=== PATIENT | female | born 1990 | race Caucasian/White ===

== ENCOUNTER 2018-11-15 04:10 | Inpatient (IN) | payer SELFPAY ==
[2018-11-15] VITALS (10 sets, daily range): BP systolic 100–151; BP diastolic 56–86; PULSE 75–96; RESP 16; TEMP 36–36.8; O2SAT 97–100; BMI 34.6
[2018-11-15] MEDS: Lactated Ringers 500 ML 999 ML IV (04:50)
[2018-11-15] MEDS: Lactated Ringers 1,000 ML 200 ML IV (05:20)
[2018-11-15 05:39] LABS: Absolute Lymphocyte Count 1.22 X10^3/uL (0.83-4.51); Absolute Neutrophil Count 18.9 X10^3/uL (2.0-7.7); Basophil# 0.05 X10^3/uL; Basophil% 0.2 % (0-1); Eosinophil# 0.06 X10^3/uL; Eosinophils% 0.3 % (0-5); Hematocrit 35.3 % (37-47); Lymphocyte # 1.22 X10^3/ul (4.0); Lymphocyte % 5.6 % (19-41); Mean Corpuscular Hgb 31.5 pg (27.0-32.0); Mean Corpuscular Volume 92.7 fL (81-99); Mean Platelet Vol. 11.5 fl (6.2-12.0); Monocyte# 1.53 X10^3/uL; NRBC Flagged by Analyzer 0 % (0-5); Neutrophil # 18.88 X10^3/uL (2.7-7.7); Neutrophil % 86.3 % (47-70); POSITIVE DIFFERENTIAL YES; Platelet Count 161 K/mm3 (150-450); RBC Distribution Width CV 12.6 % (11.6-14.6); RBC Distribution Width SD 42.5 fl (35.1-43.9); Red Blood Count 3.81 M/mm3 (4.2-5.4); White Blood Count 21.9 K/mm3 (4.4-11.0)
[2018-11-15 05:41] LABS: Differential Indicated SCAN CRITERIA MET
[2018-11-15] MEDS: HYDROmorphone 1 MG/ML Syringe IV (05:42)
[2018-11-15 05:51] LABS: International Normalized Ratio 1.1; Prothrombin Time (Protime)PT. 14.3 SECONDS (11.7-14.9)
[2018-11-15 05:52] LABS: Partial Thromboplast Time 32.4 Seconds (24.1-36.2)
[2018-11-15 06:13] LABS: Color, Urine Yellow (Yellow); Glucose, Dipstick 100 mg/dl (Normal); Ketone-Dipstick Negative (Negative); Leukocyte Esterase-Dipstick 25 /ul (Negative); Nitrite-Dipstick Negative (Negative); Occult Blood-Urine 150 /ul (Negative); Protein-Dipstick 500 mg/dl (Negative); Urine Bilirubin Dipstick Negative (Negative); Urine Clarity Cloudy (Clear); Urine Urobilinogen Normal (Normal)
[2018-11-15 06:14] LABS: Squamous Epithelial Cells - UA 10-25 SEEN /hpf (5-10)
[2018-11-15 06:15] LABS: Bacteria 2+ /hpf (None Seen); Red Blood Cells-Urine 10-25 SEEN /hpf (0-5); White Blood Cells 0-5 SEEN /hpf (0-5)
[2018-11-15 06:16] LABS: Amorphous Sediment 1+; Coarse Granular Cast 0-5 SEEN /lpf (0-5 /lpf); Hyaline Cast 0-5 SEEN /lpf (0-5); Mucous, Urine 1+ /hpf (<or=2+)
[2018-11-15 06:16] LABS: Differential Comment SCANNED; Toxic Granulation 2+
[2018-11-15] MEDS: Magnesium Sulfate 4gm/100mL 4 GM/100 ML IV.SOLN. IV (06:25)
[2018-11-15 06:27] LABS: Amphetamine Urine VISTA NEGATIVE (<1000 ng/mL); Barbiturate Urine VISTA NEGATIVE (< 200 ng/mL); Benzodiazepine Urine VISTA NEGATIVE (< 200 ng/mL); Cocaine Urine VISTA NEGATIVE (< 300 ng/mL); Ecstacy Urine VISTA NEGATIVE (< 500 ng/mL); Methadone Urine VISTA NEGATIVE (< 300 ng/mL); PCP Urine VISTA NEGATIVE (< 25 ng/mL); THC Urine VISTA NEGATIVE (< 50 ng/mL); Vista UDS pH Range 8
[2018-11-15 06:36] LABS: AST(SGOT) 33 U/L (15-37)
[2018-11-15 06:40] LABS: Alanine Aminotransfer ALT/SGPT 21 U/L (13-56); Creatinine, Serum 0.98 mg/dL (0.55-1.02); EST Glomerular Filtration Rate 71 mL/min (>60); Est Glom Filt Rate - Afr Amer 86 mL/min (>60); Thyroid Stim Hormone (TSH) 4.02 uIU/mL (0.358-3.74); Uric Acid 4.6 mg/dL (2.6-6.0)
[2018-11-15 06:41] LABS: Group B Strep DNA By PCR POSITIVE (Negative); Probe Check PASS
[2018-11-15] MEDS: fentaNYL-bupivacaine (epidural) 100 ML BAG EPIDURAL (06:45)
--- NOTE | 2018-11-15 06:52 | HP.PCM_ITS ---
- Problem List (1) demise affecting labor Status: Acute Comment: No heart tones captured by display coordinator at the birthing center prior to arrival to labor and delivery (2) Oligohydramnios Status: Acute Comment: Upon admission patient was not ruptured and grossly diminished amniotic fluid volume noted. (3) Post-dates Status: Acute (4) Family history of SIDS (sudden syndrome) Status: Acute (5) Limited care in third trimester Status: Acute Comment: Started care at 20 weeks and received care by display coordinator Evelin Cruz (6) Consanguinity Status: Acute History Date of Admission: 11/15/18 Final ERIKA: 10/28/18 Gestational age: 42 Weeks and 4 Days History of this : This is a 28 year-old, at 42 weeks gestational age presents in active labor with suspected demise of fetus. No heart tones were captured by her display coordinator at the birthing center prior to arrival to labor and delivery and upon evaluation initially on ultrasound there was no color Doppler flow and no heart motion seen. Grossly minimal amniotic fluid although limited visualization due to the lack of fluid. Patient's membranes were intact upon presentation. She complained of regular contractions with minimal break in between and increased uterine tone in between. No vaginal bleeding. Patient felt movement yesterday. Per the supervisor rod placing she started care at approximately 20 weeks and was measuring low for expected gestational age which was unclear to the supervisor rod placing if it was due to growth abnormalities or incorrect dating. They suspected incorrect dating. Allergies No Known Allergies Allergy (Verified 11/15/18 04:42) Home Medications: Home Medications Calcium Carbonate [Calcium] 600 mg PO 11/15/18 Ferrous Sulfate [Iron] 325 mg PO 11/15/18 Folic Acid 0.8 mg PO 11/15/18 Vit No.130/Iron/Folic [ Tablet] 11/15/18 Smoking Status: Never smoker Alcohol: None Number of Fetus(es): 1 - vertex NST - FHR Rate Baby A Baseline: 0 no heart tones present on initial evaluation, no color Doppler flow History Past Pregnancies: Past Pregnancies previuos term spontaneous labor at 4 days SIDS Labs: Mom's Problem List Problem Status Onset Code demise affecting labor Acute Oligohydramnios Acute O41.00X0 Post-dates Acute O48.0 Family history of SIDS (sudden infant syndrome) Acute Z84.82 Limited care in third trimester Acute O09.33 Consanguinity Acute Z84.3 Mom's Labs & Results 11/15/18 11/15/18 11/15/18 04:40 04:40 04:40 WBC RBC Hgb Hct MCV MCH MCHC RDW Std Deviation RDW Coeff of Iris Plt Count MPV Immature Gran % (Auto) Neut % (Auto) Lymph % (Auto) [place] % (Auto) Eos % (Auto) Baso % (Auto) Absolute Neuts (auto) Absolute Lymphs (auto) Nucleated RBC % Differential Comment Diff Path Review Toxic Granulation Kleihauer-Betke F Hgb Pending PT INR APTT Creatinine 0.98 Estim Creat Clear Calc 76.90 Est GFR (MDRD) Af Amer 86 Est GFR (MDRD) Non-Af 71 Hemoglobin A1c 5.9 Uric Acid 4.6 AST ALT 21 TSH 4.02 H Urine Color Urine Clarity Urine pH Ur Specific [place] Urine Protein Urine Glucose (UA) Urine Ketones Urine Occult Blood Urine Nitrite Urine Bilirubin Urine Urobilinogen Ur Leukocyte Esterase Urine RBC Urine WBC Ur Squamous Epith Cells Amorphous Sediment Urine Bacteria Hyaline Casts Coarse Granular Casts Urine Mucus U Random Total Protein Urine Creatinine Protein/Creatinin Ratio Urine Opiates Screen Urine Methadone Screen Ur Barbiturates Screen Ur Phencyclidine Scrn Ur Amphetamines Screen U Methamphetamin-MDMA U Benzodiazepines Scrn Urine Cocaine Screen U Cannabinoids Screen Ur Drug Screen Comment Anti-Cardiolipin IgG Ab Pending Anti-Cardiolipin IgA Ab Pending Anti-Cardiolipin IgM Ab Pending RPR Chlam trachomat DNA PCR Hep Bs Antigen Hepatitis C Antibody HIV 1&2 Antibody N.gonorrhoeae DNA (PCR) Rubella IgG Antibody Group B Strep DNA Specimen Comment Blood Type Antibody Screen 11/15/18 11/15/18 11/15/18 04:40 04:40 04:40 WBC 21.9 H RBC 3.81 L Hgb 12.0 Hct 35.3 L MCV 92.7 MCH 31.5 MCHC 34.0 RDW Std Deviation 42.5 RDW Coeff of Iris 12.6 Plt Count 161 MPV 11.5 Immature Gran % (Auto) 0.600 Neut % (Auto) 86.3 H Lymph % (Auto) 5.6 L [place] % (Auto) 7.0 Eos % (Auto) 0.3 Baso % (Auto) 0.2 Absolute Neuts (auto) 18.9 H Absolute Lymphs (auto) 1.22 Nucleated RBC % 0 Differential Comment SCANNED Diff Path Review May foll Toxic Granulation 2+ Kleihauer-Betke F Hgb PT INR APTT Creatinine Estim Creat Clear Calc Est GFR (MDRD) Af Amer Est GFR (MDRD) Non-Af Hemoglobin A1c Uric Acid AST ALT TSH Urine Color Urine Clarity Urine pH Ur Specific [place] Urine Protein Urine Glucose (UA) Urine Ketones Urine Occult Blood Urine Nitrite Urine Bilirubin Urine Urobilinogen Ur Leukocyte Esterase Urine RBC Urine WBC Ur Squamous Epith Cells Amorphous Sediment Urine Bacteria Hyaline Casts Coarse Granular Casts Urine Mucus U Random Total Protein Urine Creatinine Protein/Creatinin Ratio Urine Opiates Screen Urine Methadone Screen Ur Barbiturates Screen Ur Phencyclidine Scrn Ur Amphetamines Screen U Methamphetamin-MDMA U Benzodiazepines Scrn Urine Cocaine Screen U Cannabinoids Screen Ur Drug Screen Comment Anti-Cardiolipin IgG Ab Anti-Cardiolipin IgA Ab Anti-Cardiolipin IgM Ab RPR Pending Chlam trachomat DNA PCR Hep Bs Antigen Hepatitis C Antibody HIV 1&2 Antibody N.gonorrhoeae DNA (PCR) Rubella IgG Antibody Pending Group B Strep DNA Specimen Comment Blood Type Antibody Screen 11/15/18 11/15/18 11/15/18 04:40 04:40 04:40 WBC RBC Hgb Hct MCV MCH MCHC RDW Std Deviation RDW Coeff of Iris Plt Count MPV Immature Gran % (Auto) Neut % (Auto) Lymph % (Auto) [place] % (Auto) Eos % (Auto) Baso % (Auto) Absolute Neuts (auto) Absolute Lymphs (auto) Nucleated RBC % Differential Comment Diff Path Review Toxic Granulation Kleihauer-Betke F Hgb PT 14.3 INR 1.1 APTT 32.4 Creatinine Estim Creat Clear Calc Est GFR (MDRD) Af Amer Est GFR (MDRD) Non-Af Hemoglobin A1c Uric Acid AST 33 ALT TSH Urine Color Urine Clarity Urine pH Ur Specific [place] Urine Protein Urine Glucose (UA) Urine Ketones Urine Occult Blood Urine Nitrite Urine Bilirubin Urine Urobilinogen Ur Leukocyte Esterase Urine RBC Urine WBC Ur Squamous Epith Cells Amorphous Sediment Urine Bacteria Hyaline Casts Coarse Granular Casts Urine Mucus U Random Total Protein Urine Creatinine Protein/Creatinin Ratio Urine Opiates Screen Urine Methadone Screen Ur Barbiturates Screen Ur Phencyclidine Scrn Ur Amphetamines Screen U Methamphetamin-MDMA U Benzodiazepines Scrn Urine Cocaine Screen U Cannabinoids Screen Ur Drug Screen Comment Anti-Cardiolipin IgG Ab Anti-Cardiolipin IgA Ab Anti-Cardiolipin IgM Ab RPR Chlam trachomat DNA PCR Hep Bs Antigen Hepatitis C Antibody HIV 1&2 Antibody N.gonorrhoeae DNA (PCR) Rubella IgG Antibody Group B Strep DNA Specimen Comment Blood Type A POSITIVE Antibody Screen NEGATIVE 11/15/18 11/15/18 11/15/18 04:40 05:05 05:10 WBC RBC Hgb Hct MCV MCH MCHC RDW Std Deviation RDW Coeff of Iris Plt Count MPV Immature Gran % (Auto) Neut % (Auto) Lymph % (Auto) [place] % (Auto) Eos % (Auto) Baso % (Auto) Absolute Neuts (auto) Absolute Lymphs (auto) Nucleated RBC % Differential Comment Diff Path Review Toxic Granulation Kleihauer-Betke F Hgb PT INR APTT Creatinine Estim Creat Clear Calc Est GFR (MDRD) Af Amer Est GFR (MDRD) Non-Af Hemoglobin A1c Uric Acid AST ALT TSH Urine Color Urine Clarity Urine pH Ur Specific [place] Urine Protein Urine Glucose (UA) Urine Ketones Urine Occult Blood Urine Nitrite Urine Bilirubin Urine Urobilinogen Ur Leukocyte Esterase Urine RBC Urine WBC Ur Squamous Epith Cells Amorphous Sediment Urine Bacteria Hyaline Casts Coarse Granular Casts Urine Mucus U Random Total Protein Urine Creatinine Protein/Creatinin Ratio Urine Opiates Screen NEGATIVE Urine Methadone Screen NEGATIVE Ur Barbiturates Screen NEGATIVE Ur Phencyclidine Scrn NEGATIVE Ur Amphetamines Screen NEGATIVE U Methamphetamin-MDMA NEGATIVE U Benzodiazepines Scrn NEGATIVE Urine Cocaine Screen NEGATIVE U Cannabinoids Screen NEGATIVE Ur Drug Screen Comment Anti-Cardiolipin IgG Ab Anti-Cardiolipin IgA Ab Anti-Cardiolipin IgM Ab RPR Chlam trachomat DNA PCR Hep Bs Antigen Pending Hepatitis C Antibody Pending HIV 1&2 Antibody Pending N.gonorrhoeae DNA (PCR) Rubella IgG Antibody Group B Strep DNA POSITIVE H Specimen Comment Not Reportable Blood Type Antibody Screen 11/15/18 11/15/18 11/15/18 05:10 05:10 05:10 WBC RBC Hgb Hct MCV MCH MCHC RDW Std Deviation RDW Coeff of Iris Plt Count MPV Immature Gran % (Auto) Neut % (Auto) Lymph % (Auto) [place] % (Auto) Eos % (Auto) Baso % (Auto) Absolute Neuts (auto) Absolute Lymphs (auto) Nucleated RBC % Differential Comment Diff Path Review Toxic Granulation Kleihauer-Betke F Hgb PT INR APTT Creatinine Estim Creat Clear Calc Est GFR (MDRD) Af Amer Est GFR (MDRD) Non-Af Hemoglobin A1c Uric Acid AST ALT TSH Urine Color Yellow Urine Clarity Cloudy Urine pH 8.0 Ur Specific [place] 1.010 Urine Protein 500 H Urine Glucose (UA) 100 H Urine Ketones Negative Urine Occult Blood 150 H Urine Nitrite Negative Urine Bilirubin Negative Urine Urobilinogen Normal Ur Leukocyte Esterase 25 H Urine RBC 10-25 SEEN Urine WBC 0-5 SEEN Ur Squamous Epith Cells 10-25 SEEN Amorphous Sediment 1+ Urine Bacteria 2+ Hyaline Casts 0-5 SEEN Coarse Granular Casts 0-5 SEEN Urine Mucus 1+ U Random Total Protein 2576.0 H Urine Creatinine 54.50 Protein/Creatinin Ratio 45699 H Urine Opiates Screen Urine Methadone Screen Ur Barbiturates Screen Ur Phencyclidine Scrn Ur Amphetamines Screen U Methamphetamin-MDMA U Benzodiazepines Scrn Urine Cocaine Screen U Cannabinoids Screen Ur Drug Screen Comment Anti-Cardiolipin IgG Ab Anti-Cardiolipin IgA Ab Anti-Cardiolipin IgM Ab RPR Chlam trachomat DNA PCR Negative Hep Bs Antigen Hepatitis C Antibody HIV 1&2 Antibody N.gonorrhoeae DNA (PCR) Negative Rubella IgG Antibody Group B Strep DNA Specimen Comment Blood Type Antibody Screen Course Did the patient receive Yes care? Labs Blood Type: A RH: POSITIVE Other Lab Procedures/Results/ all labs collected on admission Comments: Current Obstetrical History Gestational Diabetes No Incompetent Cervix No Infertility No IUGR No Macrosomia No Hypertension/Pre-eclampsia Yes: during recent visits Placenta Previa/Abruption No PTL/PROM No Uterine anomaly No Oligohydramnios No Polyhydramnios No Multiple gestation No Past Medical History Asthma No Diabetes No Hypertension No Heart disease No Mitral valve prolapse No Neurologic/Seizure disorder/ No Migraines Kidney disease No Liver disease No Varicosities Yes Clotting disorders/Hx of DVT No Thyroid Dysfunction No Other medical diseases No Psychiatric disorders No Major trauma Yes: Abnormal PAP smear No Sleep apnea No Mammogram in the last 2 years No Social History Marital Status: Alleged father marlene Hx Smoking No Smoking Status Never smoker Expected Infant Delivery Method: Spontaneous Vaginal Review of Systems Constitutional: Denies: Fever, Malaise Eyes: Denies: Blurred vision, Vision Change HEENT: Denies: Head Aches, Visual Changes Cardiovascular: Denies: Chest Pain, Palpitations Respiratory: Denies: Cough, Shortness of Breath, Wheezing Gastrointestinal: Reports: Abdominal Pain, Nausea. Denies: Diarrhea, Vomiting Genitourinary: Denies: Dysuria, Hematuria Gynecological: Denies: Vaginal bleeding, Vaginal discharge Musculoskeletal: Denies: Joint Pain, Muscle pain Skin: Denies: Lesions, Rash Neurological: Denies: Blurred vision, Focal weakness, Headaches Psychiatric: Denies: Anxiety, Depression Endocrine: Denies: Heat/ Cold Intolerance Hematologic/ Lymphatic: Denies: Easy Bruising, Easy Bleeding Physical Exam General: Alert, Cooperative, No apparent distress HEENT: Atraumatic, Normocephalic. Negative for: Thyromegaly, Lymphadenopathy Cardiovascular: Regular rate Lungs: Normal air movement Abdomen: Soft, Non Tender, Gravid Neurological: Deep Tendon Reflexes 2+/4 and Symmetrical, Neuro grossly intact. Negative for: Clonus RESIDENTIAL FIELD MANAGER: Normal external genitalia. Negative for: Vulvar lesions Estimated gestational size: Small for gestational age Presentation: Cephalic Cervix Dilation (cm): 6 Station: -1 Effacement (%): 70 Assessment/Plan All Active Problems demise affecting labor (Acute) Oligohydramnios (Acute) Post-dates (Acute) Family history of SIDS (sudden infant syndrome) (Acute) Limited care in third trimester (Acute) Consanguinity (Acute) This is a 28 year-old, , at 42 weeks gestational age presents IAL and term demise elevated bps-normal platelets and liver enzymes, start magnesium sulfate and give labetalol now to manage blood pressures. severely elevated protein with mildly elevated creatinine, no dietary supplements other than chlorophyll and vitamin. Plan epidural for pain management Plan Pitocin per protocol once comfortable with epidural and rupture of membranes- thick meconium seen demise recommend full laboratory evaluation- ordered tsh hg a1c KB
[2018-11-15] MEDS: Magnesium Sulfate 20 GM/500 ML BAG IV ×2 (06:55→17:25)
[2018-11-15 07:30] LABS: Chlamydia Trachomatis by PCR Negative (Negative); Neisserai gonorrhoeae by PCR Negative (Negative); Probe Check PASS; Sample Adequacy Control PASS; Specimen Processing Control PASS
[2018-11-15 08:13] LABS: Hemoglobin A1c 5.9 % (4.2-6.3)
[2018-11-15] MEDS: Cefazolin 2 GM in 0.9% Normal Saline 100 ML IV (09:30)
[2018-11-15] MEDS: Oxytocin 30 units/NS 500 ml 30 UNITS/500 ML IV.SOLN 334 UNITS IV (09:45)
--- NOTE | 2018-11-15 09:45 | PLAC_PTH ---
PATIENT: LUIS ANTONIO LOMBARDO LOC: [facility] U#:[id number] AGE/SX: 28/F ROOM: WP021 RE11/15/[address]: Dr. Miriam Betts MD : 1990 BED: 1 DIS: 11/17/2018 SPEC #: [id number] RECD: 11/15/18 14:28 STATUS: RENÉE MITCHEL #: [id number] SANJAY: 11/15/18 09:[address]: Miriam Betts DEPT: SURGICAL PATHOLOGY RECD BY: Antonio Wright Tissues: Placenta, NOS Procedures: Surgery Specimen Level V HEADER OPERATION: Vaginal delivery PRE-OP DIAGNOSIS: Rule out abruption, demise TISSUE SUBMITTED: Placenta MICROSCOPIC DIAGNOSIS Huerta placenta (443 gm): Umbilical cord - trivascular with no inflammation. Placental membranes - mild chronic and focal acute deciduitis. Placental disc - remote infarct, organizing intraparenchymal hemorrhage, focal chorioangiosis and mild Sen-Andrea change. AM:ba 11/19/18 COMMENT Case has been reviewed in consultation with Dr. Peraza who concurs with the above diagnosis. IDC:SJ MICROSCOPIC DESCRIPTION Slides are reviewed. GROSS DESCRIPTION SPECIMEN: PLACENTA / CLINICAL INFORMATION: A. Weight: Not noted B. Gestational Age: 42 weeks C. Sex: Female PLACENTAL WEIGHT (POST FIXATION): 443 gm PLACENTAL DIMENSIONS: 17 x 16 x 4 cm PLACENTAL SHAPE: Usual ovoid PLACENTAL WEIGHT FOR GESTATIONAL AGE: Within 10-99th percentile MEMBRANES - Present A. Insertion: Marginal B. Site of rupture from edge: 7 cm from edge of placental disc C. Color of membrane: Nava-greenish consistent with meconium staining D. Abnormalities: None UMBILICAL CORD - Present A. Color: Nava-rivera B. Insertion: Central C. Length: 26 cm D. Diameter: 1.2 cm E. Number of vessels: Three F. Abnormalities: A few false knots are noted. There is a focal showing spiraling. PLACENTAL DISC - Present A. Color of surface: Nava-rivera B. surface abnormalities: None C. Maternal cotyledons: Intact with minimal tears D. Attached retro placental clot: No clot E. Cut surface: Dark red and spongy F. Lesions: None G. Separate clot: Absent SECTIONS SUBMITTED: 1. Membrane roll 2. Cord, maternal end 3. Cord, end 4. Placental disc, and maternal surfaces 5. Placental disc, and maternal surfaces 6. Placental disc, and maternal surfaces SJ:ba 11/16/18 TC:2 CPT: 52896
[2018-11-15 10:16] LABS: Rubella IgG 0.8 IU/mL
--- NOTE | 2018-11-15 10:32 | PCM.OPRPT ---
Problem List (1) demise affecting labor Status: Acute Comment: No heart tones captured by panel lay up worker at the birthing center prior to arrival to labor and delivery (2) Oligohydramnios Status: Acute Comment: Upon admission patient was not ruptured and grossly diminished amniotic fluid volume noted. (3) Post-dates Status: Acute (4) Family history of SIDS (sudden syndrome) Status: Acute (5) Limited care in third trimester Status: Acute Comment: Started care at 20 weeks and received care by panel lay up worker Evelin Cruz (6) Consanguinity Status: Acute Comment: and are second cousins (7) Placental abruption Status: Acute Vaginal Delivery Maternal Presentation: Active Labor, Medically Indicated Induction, - - term demise 42 weeks postdates 28-year-old at 42 weeks 4 days presents in active labor 6 cm of dilation with term demise. Patient complains of abdominal pain in between contractions that started last night. When she presented she had severely elevated blood pressures and was started on magnesium and had severe elevated protein at 47,000 mg. Creatinine was elevated at 0.89. Method of Induction: Amniotomy Medical Reason for Induction: demise, Preeclampsia, eclampsia - severe features, severe proteinuria Amniotic Membrane Rupture Type: Artificial Amniotic Fluid Description: Thick meconium Final ERIKA: 10/28/18 Gestational age: 42 Weeks and 4 Days Date of Procedure: 11/15/18 Pre-Operative Diagnosis: ial 42 week demise severe oligo preeclampsia with severe features Post-Operative Diagnosis: same plus severe placental abruption with 400cc retroplacental clot Surgery/ Procedure Performed: Spontaneous Vaginal Delivery Type of Anesthesia: Epidural Description of Procedure: Patient presented in active labor at 6 cm of dilation. Upon initial evaluation no heart tones or blood flow are seen. Artificial rupture membranes were employed after epidural anesthesia was found to be adequate. Thick meconium was found upon rupture of membranes. She proceeded to complete dilation after an hour . patient began pushing and delivered the head in the THOMAS presentation. The head was delivered atraumatically. The anterior and posterior shoulders delivered without complication followed by the rest of the and the was was noted to have no heartbeat or movement or tone. was wrapped in blankets and placed in a crib. gentle traction was applied to the cord and the placenta delivered spontaneously immediately following it was noted to be intact with three-vessel cord with 400 cc of organized retroplacental clot that came out and severe abruption was noted on the placenta. The perineum and vagina were inspected and noted to have a second-degree perineal laceration that was repaired in the usual fashion with 3-0 Vicryl Rapide.. EBL was 600 cc. Infant was examined and noted to have no significant anatomical dysmorphia. No gross lesions or trauma and appeared to be fairly appropriate for gestational age. Suspicion of placental abruption due to severe preeclampsia as cause of antepartum. Presentation: THOMAS Placental Delivery Description: Spontaneous Placenta Disposition: [facility] Percentage of Placenta Abruption: 80 Cord Vessel Description: 3 Vessels Cord Entanglement: None Estimated Blood Loss: 600 Infant A gender: Female (1 minute): 0 (5 minute): 0 Episiotomy Description: None Laceration: Perineal Extension/lac, 2nd degree Medications given after delivery: IV Pitocin Complications: - - placental abruption severe preeclampsia Multi Select Codes - Urinary/Genital Urinary/Genital CPT Codes: 91711 Vaginal Delivery+ [facility])
[2018-11-15 10:44] LABS: HIV - WCH Non-Reactive (Nonreactive); Hepatitis B Surface Antigen Non-Reactive (Nonreactive); Hepatitis C Antibody Non-Reactive (Nonreactive)
[2018-11-15 12:10] LABS: ALB/GLOB Ratio 0.7 RATIO (0.9-2.4); AST(SGOT) 31 U/L (15-37); Alanine Aminotransfer ALT/SGPT 18 U/L (13-56); Albumin, Serum 2.5 g/dL (3.2-5.0); Alkaline Phosphatase 227 U/L (45-117); Anion Gap 9 (5-15); BUN 7 mg/dL (7-18); BUN/Creat Ratio 5.5 RATIO (10-20); Calcium,Total 8.4 mg/dL (8.5-10.1); Chloride 104 mmol/L (98-107); Creatinine, Serum 1.28 mg/dL (0.55-1.02); EST Glomerular Filtration Rate 52 mL/min (>60); Est Glom Filt Rate - Afr Amer 64 mL/min (>60); Estimated Creatinine Clearance 58.88 ml/min; Globulin 3.4 g/dL (2.2-4.2); Glucose 120 mg/dL (74-106); Potassium 4.3 mmol/L (3.5-5.1); Protein, Total 5.9 g/dL (6.4-8.2); Sodium Level 136 mmol/L (136-145); T4 Free Direct 0.68 ng/dL (0.76-1.46)
[2018-11-15 12:46] LABS: Pathologist Review Reviewed
[2018-11-15] MEDS: Labetalol 100 MG Tablet PO ×2 (13:21→16:08)
[2018-11-15 13:22] LABS: Kleihauer-Betke Negative
--- NOTE | 2018-11-15 13:33 | NURSING ---
Dr. Betts called in OR for a labetolol 100mg po bid order since she was going to order earlier but pt's BP's were low from epidural. Will continue to monitor on magnesium sulfate and labetolol po.
--- NOTE | 2018-11-15 16:37 | CASEMGMT ---
Social Work Labor and Delivery Unit Notified by nursing of full term loss at 42.4 weeks gestation. Second loss for this mother of baby (MOB) whose first baby at 4 days old in November 2017. Presented to MOB's room to offer support, as well as review resources. Family in room and baby in bedside crib. Introduced to self and role, reason for visit. MOB appearing tired. Offered to sit down with MOB now or to come back in the morning, whatever suits the MOB the best. MOB asked if tomorrow would be okay as is feeling tired today. Plan: Meet with MOB, and father of baby if present, on 11-16-2018. -BLANKA Harley, CORROSION CONTROL TECHNICIAN
[2018-11-15 19:04] LABS: ALB/GLOB Ratio 0.7 RATIO (0.9-2.4); AST(SGOT) 30 U/L (15-37); Alanine Aminotransfer ALT/SGPT 17 U/L (13-56); Albumin, Serum 2.3 g/dL (3.2-5.0); Alkaline Phosphatase 133 U/L (45-117); Anion Gap 11 (5-15); BUN 9 mg/dL (7-18); Calcium,Total 8.1 mg/dL (8.5-10.1); Chloride 101 mmol/L (98-107); Creatinine, Serum 1.12 mg/dL (0.55-1.02); EST Glomerular Filtration Rate 61 mL/min (>60); Est Glom Filt Rate - Afr Amer 74 mL/min (>60); Estimated Creatinine Clearance 67.29 ml/min; Globulin 3.2 g/dL (2.2-4.2); Glucose 117 mg/dL (74-106); Potassium 4.5 mmol/L (3.5-5.1); Protein, Total 5.5 g/dL (6.4-8.2); Sodium Level 133 mmol/L (136-145)
[2018-11-15 19:49] LABS: Hematocrit 26.7 % (37-47); Mean Corp Hgb Conc 33.7 g/dL (32-36); Mean Corpuscular Hgb 30.9 pg (27.0-32.0); Mean Corpuscular Volume 91.8 fL (81-99); POSITIVE COUNT YES; Platelet Count 115 K/mm3 (150-450); RBC Distribution Width CV 12.9 % (11.6-14.6); RBC Distribution Width SD 42.8 fl (35.1-43.9); Red Blood Count 2.91 M/mm3 (4.2-5.4); White Blood Count 18.1 K/mm3 (4.4-11.0)
[2018-11-15 19:50] LABS: Scan Indicated on CBC? Y/N YES- FLAGS NOTED
[2018-11-16] VITALS (12 sets, daily range): BP systolic 100–120; BP diastolic 52–65; PULSE 69–86; RESP 14–16; TEMP 35.9–36.9; O2SAT 96–100
[2018-11-16 02:06] LABS: Rapid Plasmin Reagin (RPR) NONREACTIVE (NONREACTIVE)
[2018-11-16] MEDS: Magnesium Sulfate 20 GM/500 ML BAG IV (04:21)
[2018-11-16 05:59] LABS: Absolute Lymphocyte Count 1.96 X10^3/uL (0.83-4.51); Absolute Neutrophil Count 9.2 X10^3/uL (2.0-7.7); Basophil# 0.05 X10^3/uL; Basophil% 0.4 % (0-1); Eosinophil# 0.28 X10^3/uL; Eosinophils% 2.3 % (0-5); Hematocrit 23.3 % (37-47); Hemoglobin 7.7 g/dL (12.0-15.0); Lymphocyte # 1.96 X10^3/ul (4.0); Lymphocyte % 15.8 % (19-41); Mean Corpuscular Hgb 30.8 pg (27.0-32.0); Mean Corpuscular Volume 93.2 fL (81-99); Mean Platelet Vol. 11.8 fl (6.2-12.0); Monocyte# 0.87 X10^3/uL; NRBC Flagged by Analyzer 0 % (0-5); Neutrophil # 9.21 X10^3/uL (2.7-7.7); Neutrophil % 74.2 % (47-70); Platelet Count 121 K/mm3 (150-450); RBC Distribution Width CV 13.2 % (11.6-14.6); RBC Distribution Width SD 44.4 fl (35.1-43.9); White Blood Count 12.4 K/mm3 (4.4-11.0)
[2018-11-16 06:15] LABS: ALB/GLOB Ratio 0.7 RATIO (0.9-2.4); AST(SGOT) 20 U/L (15-37); Alanine Aminotransfer ALT/SGPT 16 U/L (13-56); Albumin, Serum 2.1 g/dL (3.2-5.0); Alkaline Phosphatase 111 U/L (45-117); Anion Gap 10 (5-15); BUN 12 mg/dL (7-18); BUN/Creat Ratio 11.8 RATIO (10-20); Calcium,Total 7.3 mg/dL (8.5-10.1); Chloride 106 mmol/L (98-107); Creatinine, Serum 1.02 mg/dL (0.55-1.02); EST Glomerular Filtration Rate 68 mL/min (>60); Est Glom Filt Rate - Afr Amer 83 mL/min (>60); Estimated Creatinine Clearance 73.89 ml/min; Globulin 3.1 g/dL (2.2-4.2); Glucose 108 mg/dL (74-106); Potassium 3.9 mmol/L (3.5-5.1); Protein, Total 5.2 g/dL (6.4-8.2); Sodium Level 140 mmol/L (136-145)
--- NOTE | 2018-11-16 07:46 | PCM.PN.OB ---
Patient Problems: Active and Suspected Problems demise affecting labor (Acute) No heart tones captured by visual display associate at the birthing center prior to arrival to labor and delivery Oligohydramnios (Acute) Upon admission patient was not ruptured and grossly diminished amniotic fluid volume noted. Post-dates (Acute) Family history of SIDS (sudden syndrome) (Acute) Limited care in third trimester (Acute) Started care at 20 weeks and received care by visual display associate Evelin Cruz Consanguinity (Acute) and are second cousins Placental abruption (Acute) Subjective: Patient is feeling much better and denies any headache blurry vision and is coping well with the loss. Patient has minimal discomfort and only mild bleeding. She had passed several clots last night but has minimal bleeding now. Afebrile. - Physical Exam General: Alert, Oriented x3 Vital Signs Temp Pulse Resp BP Pulse Ox 97.1 F L 83 16 113/61 98 11/16/18 06:25 11/16/18 06:25 11/16/18 06:25 11/16/18 06:25 11/16/18 06:25 Oxygen Delivery Method Room Air Weight: 208 lb Body Mass Index (BMI) 34.6 Intake and Output for Last 24 Hours 11/14/18 11/15/18 11/16/18 23:59 23:59 23:59 Intake Total 4268.66 / 4268.66 903.33 / 903.33 Output Total 2497 / 2497 2400 / 2400 Balance 1771.66 / 1771.66 -1496.67 / -1496.67 Laboratory Tests Past 24 Hrs 11/15/18 11/15/18 11/15/18 04:40 04:40 04:40 WBC RBC Hgb Hct MCV MCH MCHC RDW Std Deviation RDW Coeff of Iris Plt Count MPV Immature Gran % (Auto) Neut % (Auto) Lymph % (Auto) [place] % (Auto) Eos % (Auto) Baso % (Auto) Absolute Neuts (auto) Absolute Lymphs (auto) Nucleated RBC % Differential Comment Diff Path Review Reviewed [facility] Hgb Negative Sodium Potassium Chloride Carbon Dioxide Anion Gap BUN Creatinine Estim Creat Clear Calc Est GFR (MDRD) Af Amer Est GFR (MDRD) Non-Af BUN/Creatinine Ratio Glucose Hemoglobin A1c 5.9 Calcium Total Bilirubin AST ALT Alkaline Phosphatase Total Protein Albumin Globulin Albumin/Globulin Ratio Free T4 RPR Hep Bs Antigen Hepatitis C Antibody HIV 1&2 Antibody Rubella IgG Antibody 11/15/18 11/15/18 11/15/18 04:40 04:40 04:40 WBC RBC Hgb Hct MCV MCH MCHC RDW Std Deviation RDW Coeff of Iris Plt Count MPV Immature Gran % (Auto) Neut % (Auto) Lymph % (Auto) [place] % (Auto) Eos % (Auto) Baso % (Auto) Absolute Neuts (auto) Absolute Lymphs (auto) Nucleated RBC % Differential Comment Diff Path Review [facility] F Hgb Sodium Potassium Chloride Carbon Dioxide Anion Gap BUN Creatinine Estim Creat Clear Calc Est GFR (MDRD) Af Amer Est GFR (MDRD) Non-Af BUN/Creatinine Ratio Glucose Hemoglobin A1c Calcium Total Bilirubin AST ALT Alkaline Phosphatase Total Protein Albumin Globulin Albumin/Globulin Ratio Free T4 RPR NONREACTIVE Hep Bs Antigen Non-Reactive Hepatitis C Antibody Non-Reactive HIV 1&2 Antibody Non-Reactive Rubella IgG Antibody 0.8 11/15/18 11/15/18 11/15/18 04:40 11:25 18:40 WBC 18.1 H RBC 2.91 L Hgb 9.0 L Hct 26.7 L MCV 91.8 MCH 30.9 MCHC 33.7 RDW Std Deviation 42.8 RDW Coeff of Iris 12.9 Plt Count 115 L MPV 12.0 Immature Gran % (Auto) Neut % (Auto) Lymph % (Auto) [place] % (Auto) Eos % (Auto) Baso % (Auto) Absolute Neuts (auto) Absolute Lymphs (auto) Nucleated RBC % Differential Comment Diff Path Review July foll [facility] Hgb Sodium Cancelled 136 Potassium Cancelled 4.3 Chloride Cancelled 104 Carbon Dioxide Cancelled 23.0 Anion Gap Cancelled 9 BUN Cancelled 7 Creatinine Cancelled 1.28 H Estim Creat Clear Calc Cancelled 58.88 Est GFR (MDRD) Af Amer Cancelled 64 Est GFR (MDRD) Non-Af Cancelled 52 L BUN/Creatinine Ratio Cancelled 5.5 L Glucose Cancelled 120 H Hemoglobin A1c Calcium Cancelled 8.4 L Total Bilirubin Cancelled 0.60 AST Cancelled 31 ALT Cancelled 18 Alkaline Phosphatase Cancelled 227 H Total Protein Cancelled 5.9 L Albumin Cancelled 2.5 L Globulin Cancelled 3.4 Albumin/Globulin Ratio Cancelled 0.7 L Free T4 Cancelled 0.68 L RPR Hep Bs Antigen Hepatitis C Antibody HIV 1&2 Antibody Rubella IgG Antibody 11/15/18 11/16/18 11/16/18 18:40 05:35 05:35 WBC 12.4 H RBC 2.50 L Hgb 7.7 L Hct 23.3 L MCV 93.2 MCH 30.8 MCHC 33.0 RDW Std Deviation 44.4 H RDW Coeff of Iris 13.2 Plt Count 121 L MPV 11.8 Immature Gran % (Auto) 0.300 Neut % (Auto) 74.2 H Lymph % (Auto) 15.8 L [place] % (Auto) 7.0 Eos % (Auto) 2.3 Baso % (Auto) 0.4 Absolute Neuts (auto) 9.2 H Absolute Lymphs (auto) 1.96 Nucleated RBC % 0 Differential Comment Diff Path Review [facility] Hgb Sodium 133 L 140 Potassium 4.5 3.9 Chloride 101 106 Carbon Dioxide 21.0 24.0 Anion Gap 11 10 BUN 9 12 Creatinine 1.12 H 1.02 Estim Creat Clear Calc 67.29 73.89 Est GFR (MDRD) Af Amer 74 83 Est GFR (MDRD) Non-Af 61 68 BUN/Creatinine Ratio 8.0 L 11.8 Glucose 117 H 108 H Hemoglobin A1c Calcium 8.1 L 7.3 L Total Bilirubin 0.40 0.20 AST 30 20 ALT 17 16 Alkaline Phosphatase 133 H 111 Total Protein 5.5 L 5.2 L Albumin 2.3 L 2.1 L Globulin 3.2 3.1 Albumin/Globulin Ratio 0.7 L 0.7 L Free T4 RPR Hep Bs Antigen Hepatitis C Antibody HIV 1&2 Antibody Rubella IgG Antibody Medical Necessity - Tobacco Use Smoking Status: Never smoker Assessment/Plan All Active Problems demise affecting labor (Acute) Oligohydramnios (Acute) Post-dates (Acute) Family history of SIDS (sudden infant syndrome) (Acute) Limited care in third trimester (Acute) Consanguinity (Acute) Placental abruption (Acute) day 1 status post delivery after IUFD, severe preeclampsia and placental abruption with severe features?proteinuria severe, 24-hour urine complete and still abnormal but reduced significantly. Creatinine covering but starting to go back up and therefore I would recommend continued observation in the hospital until tomorrow. Status post magnesium sulfate for 24 hours. Blood pressures within normal limits and initially labetalol was given orally but this was discontinued now due to low blood pressures. Discussed case with nursing and nursing leadership and [place] [facility] liaison. Support given to family for loss.
[2018-11-16] MEDS: 0.9% Saline Lock 10 ML Syringe IV ×2 (09:46→21:23)
[2018-11-16 10:15] LABS: Hemoglobin 7.7 g/dL (12.0-15.0)
[2018-11-16 10:47] LABS: Creatinine, Serum 1.15 mg/dL (0.55-1.02); EST Glomerular Filtration Rate 59 mL/min (>60); Est Glom Filt Rate - Afr Amer 72 mL/min (>60); Estimated Creatinine Clearance 65.54 ml/min
[2018-11-16 13:39] LABS: 24 Hour Urine Protein 3417.8 mg/24HR (<150 MG/24HR); Urine Protein (24 Hour) 65.1 mg/dL (<11.9)
[2018-11-16 13:49] LABS: 24HR. Urine Creatinine 1.28 g/24 HR (0.70-1.90)
[2018-11-16 13:51] LABS: Creat.Clear Total Volume 5250 mL; Creatinine Clearance 79 ml/min (100-200); Creatinine Serum Creat 1.2 mg/dL (0.6-1.0); Creatinine Urine 24.9 mg/dL (NO RANGE EST.); EST Glomerular Filtration Rate 59 mL/min (>60); Est Glom Filt Rate - Afr Amer 72 mL/min (>60)
[2018-11-16 14:43] LABS: 24HR. UA Prot. Total Volume 5250 mL
--- NOTE | 2018-11-16 16:47 | NURSING ---
1647- PHQ-2 not done. [employer] Consultant into see for demise. See SS note.
--- NOTE | 2018-11-16 23:00 | NURSING ---
quarter size round clot passed. no increase in blood flow.
--- NOTE | 2018-11-17 01:51 | DCINST_ITS ---
Discharge Diet: No Restrictions Discharge Activity: Return to Normal Activity, May not drive while taking narcotic pain medications., May Shower May resume sexual activity in: 4-6 weeks Call your doctor if your incision/area has: Continuous Slow Oozing, Sudden Increased Bleeding, Increased Pain/ Swelling, Increased Redness, Foul Smelling Discharge Call your doctor if you observe: Fever of 101 or Higher, Numbness or Tingling, Shortness of breath, Dizziness, Fainting spells, Chest pain, Calf discomfort, - - persistent headache, blurry vision. recommend fu in 1-2 and 6 weeks. in a future you need to be seen by a physician and have extra testing in starting at 28-30 weeks and I recommend early delivery at 39 weeks in future pregnancies/ Additional Instructions: If you experience any of the following, contact your healthcare provider. * Bleeding that soaks a pad every hour for 2 hours * Fever 100.4 or higher * Unrelieved incision or abdominal pain * Swelling, redness, discharge or bleeding from your incision or episiotomy site * Your incision begins to separate * Problems urinating (including inability to urinate or burning while urinating). * Visual changes * Severe headache * Flu-like symptoms * Pain or redness in one of both of your breasts * Pain, warmth, tenderness or swelling in your legs, especially the calf area * Frequent nausea and vomiting * Symptoms of depression or anxiety If you experience any of the following, call 911 or go to the nearest Emergency Room. * Chest pain * Problems breathing * Seizure activity * Partial or complete paralysis of a body part, slurred speech, weakness or drooping of the face, or a sudden inability to walk or hold your balance Allergies/Adverse Reactions: Allergies No Known Allergies Allergy (Verified 11/15/18 04:42) Medications to take at Discharge Calcium Carbonate [Calcium] 600 mg PO 11/15/18 Ferrous Sulfate [Iron] 325 mg PO 11/15/18 Folic Acid 0.8 mg PO 11/15/18 Vit No.130/Iron/Folic [ Tablet] 11/15/18 Blood Pressure Test Kit-Medium [Blood Pressure Cuff Monitor] 1 [facility] DAILY #1 kit 11/17/18 The following prescriptions were given: Blood Pressure Test Kit-Medium [Blood Pressure Cuff Monitor] 1 [facility] DAILY #1 kit Please Follow Up With: Miriam Betts MD - [phone] When: Call to make an appointment with your doctor in 1 week and 6 weeks. call your primary care physicians office to also be seen within the next 2-4 weeks. Test Results: Test results from this visit will be discussed in further detail at your follow- up appointment, if applicable. Proposed Discharge Date: 11/17/18
[2018-11-17 02:00] VITALS: BP 110/59; PULSE 74; RESP 20; TEMP 37.1
[2018-11-17 05:46] LABS: Creatinine, Serum 0.87 mg/dL (0.55-1.02); EST Glomerular Filtration Rate 82 mL/min (>60); Est Glom Filt Rate - Afr Amer 99 mL/min (>60); Estimated Creatinine Clearance 86.63 ml/min
--- NOTE | 2018-11-17 09:27 | PCM.PN.OB ---
Patient Problems: Active and Suspected Problems Renal insufficiency (Acute) Preeclampsia, severe (Acute) demise affecting labor (Acute) No heart tones captured by clay mine cutting machine operator at the birthing center prior to arrival to labor and delivery Oligohydramnios (Acute) Upon admission patient was not ruptured and grossly diminished amniotic fluid volume noted. Post-dates (Acute) Family history of SIDS (sudden infant syndrome) (Acute) Limited care in third trimester (Acute) Started care at 20 weeks and received care by [employer] cutting machine operator Evelin Cruz Consanguinity (Acute) and are second cousins Placental abruption (Acute) Subjective: doing well no complaints pain controlled no CP SOB N V ambulating well tolerating po lochia moderate, going well - Physical Exam General: Alert, Oriented x3 Vital Signs Temp Pulse Resp BP Pulse Ox 98.7 F 74 20 H 110/59 L 97 11/17/18 02:00 11/17/18 02:00 11/17/18 02:00 11/17/18 02:00 11/16/18 09:23 Oxygen Delivery Method Room Air Weight: 208 lb Body Mass Index (BMI) 34.6 Intake and Output for Last 24 Hours 11/15/18 11/16/18 11/17/18 23:59 23:59 23:59 Intake Total 4268.66 / 4268.66 1270.83 / 1270.83 Output Total 2497 / 2497 3100 / 3100 Balance 1771.66 / 1771.66 -1829.17 / -1829.17 Laboratory Tests Past 24 Hrs 11/15/18 11/15/18 11/15/18 11:40 11:40 11:40 Hgb Creatinine 1.2 H Estim Creat Clear Calc Est GFR (MDRD) Af Amer 72 Est GFR (MDRD) Non-Af 59 L Urine Collection Time 24.0 24.0 Ur Collection Duration 24.0 Urine Total Volume 5.20 Timed Urine Volume 5250 5250 Urine Creatinine 24.40 24.9 Ur Creatinine 24 Hour 1.28 Creatinine Clearance 79 L Ur Total Protein 24 Hr 3417.8 H Urine Total Protein 65.1 H 11/16/18 11/16/18 11/17/18 09:52 09:52 05:25 Hgb 7.7 L Creatinine 1.15 H 0.87 Estim Creat Clear Calc 65.54 86.63 Est GFR (MDRD) Af Amer 72 99 Est GFR (MDRD) Non-Af 59 L 82 Urine Collection Time Ur Collection Duration Urine Total Volume Timed Urine Volume Urine Creatinine Ur Creatinine 24 Hour Creatinine Clearance Ur Total Protein 24 Hr Urine Total Protein Medical Necessity - Tobacco Use Smoking Status: Never smoker Assessment/Plan All Active Problems Renal insufficiency (Acute) Preeclampsia, severe (Acute) demise affecting labor (Acute) Oligohydramnios (Acute) Post-dates (Acute) Family history of SIDS (sudden infant syndrome) (Acute) Limited care in third trimester (Acute) Consanguinity (Acute) Placental abruption (Acute) day 2 status post delivery after IUFD, severe preeclampsia and placental abruption with severe features?proteinuria severe, 24-hour urine complete and still abnormal but reduced significantly. Creatinine recovering now. stable for dc to home Status post magnesium sulfate for 24 hours. Blood pressures within normal limits and initially labetalol was given orally but this was discontinued now due to low blood pressures. Discussed case with nursing and nursing leadership and [facility] liaison. Support given to family for loss.
[2018-11-17] MEDS: Naproxen 250 MG Tablet 500 MG PO (09:32)
[2018-11-17 09:35] VITALS: BP 124/69; PULSE 85; RESP 16; TEMP 36.6; O2SAT 98
[2018-11-17 14:16] LABS: Anti-Cardiolipin Ab, IgA, Qn < 9 APL U/mL (0-11); Anti-Cardiolipin Ab, IgG, Qn < 9 GPL U/mL (0-14); Anti-Cardiolipin Ab, IgM, Qn 10 MPL U/mL (0-12)
[2018-11-19 13:20] LABS: Pathologist Review Reviewed
[2018-11-19 14:02] LABS: Pathology Specimen OB SEE PATHOLOGY REPORT
== END 2018-11-17 10:35 | disposition home or self-care (01) | DRG 805 ==
LOC: WPOUT 04:27 → WP 04:38
PROVIDERS: Admitting Provider Obstetrics & Gynecology; Visit Provider Obstetrics & Gynecology
DX: O36.4XX0 Maternal care for intrauterine death, not applicable or unspecified (principal); O45.93 Premature separation of placenta, unspecified, third trimester; Z37.1 Single stillbirth; O15.1 Eclampsia complicating labor; O41.03X0 Oligohydramnios, third trimester, not applicable or unspecified; O48.0 Post-term pregnancy; O14.14 Severe pre-eclampsia complicating childbirth; O70.1 Second degree perineal laceration during delivery; O77.0 Labor and delivery complicated by meconium in amniotic fluid; Z3A.42 42 weeks gestation of pregnancy; Z84.3 Family history of consanguinity; Z84.82 Family history of sudden infant death syndrome
CPT/HCPCS: 59025; 59050; 80053; 80307; 81001; 82565; 82570; 82575; 83036; 84156; 84439; 84443; 84450; 84460; 84550; 85018; 85025; 85027; 85460; 85610; 85730; 86147; 86592; 86703; 86762; 86803; 86850; 86900; 86901; 87340; 87491; 87591; 87653; 88307; 99218; J7120; A4216; G0378

== ENCOUNTER → 2018-11-22 17:15 | Outpatient (CLI) | payer SELFPAY ==
[2018-11-22 13:27] VITALS: BMI 34.6
[2018-11-22 18:12] LABS: Protein, Urine (Random) 26.8 mg/dL (<11.9); Protein:Creat Ratio 1218 mg/g CRE (0-200)
== END ==
PROVIDERS: Referring Provider Obstetrics & Gynecology; Visit Provider Obstetrics & Gynecology
DX: O14.10 Severe pre-eclampsia, unspecified trimester (principal); Z3A.00 Weeks of gestation of pregnancy not specified
CPT/HCPCS: 82570; 84156

== ENCOUNTER 2023-03-09 10:25 | Inpatient (IN) | payer SELFPAY, OTHER ==
[2023-03-09] VITALS (21 sets, daily range): BP systolic 129–154; BP diastolic 79–99; PULSE 76–101; TEMP 36.6–37.4; O2SAT 96–98; BMI 40.0
[2023-03-09] MEDS: Lactated Ringers 1,000 ML 50 ML IV (10:45)
[2023-03-09] MEDS: LACTATED RINGERS 500 ML 999 ML IV (10:50)
--- NOTE | 2023-03-09 10:59 | US_ITS ---
STUDY: SECOND AND THIRD TRIMESTER OBSTETRICAL ULTRASOUND - LIMITED REASON FOR EXAM: Female, 33 years old confirm placenta location and cervical length LMP: Unknown. PRIOR ULTRASOUND: TECHNIQUE: Transabdominal and Transvaginal TECHNICAL QUALITY: Adequate. FINDINGS: There is a single intrauterine fetus. The fetus is in a cephalic presentation. There is demonstrated cardiac activity with a heart rate of 155 bpm. There is a normal amniotic fluid volume by subjective analysis. . The placenta is posterior in location and is not low lying. There are Grade 1 placental changes. The cervix measures 4.2 cm in length. Age by LMP: 38 weeks, 4 days. ERIKA by LMP: 03/19/2023. US/OB Limited (No Biometrics) IMPRESSION: Limited ultrasound assessment as above. Electronically Signed: Omari Hernandez DO at 14:23 EST ,
--- OUTSIDE RECORDS SUMMARY | 2023-03-09 11:04 | XMS RPT_ITS | CCD ---
Author Name Unknown Address [address] [place] [address] Organization [facility] Care Team Providers Care Hand Finisher Name Role Phone XOCHITL PRATT, DR DRU Hoover Primary Care Physician Maren vailable Medications Current Medications Medication Drug Class(es) Dates Sig (Normalized) Sig (Original) ibuprofen 600 mg oral tablet (1 source) Nonsteroidal Anti-inflammatory Drug Start: 12-27-2020 Motrin Dose : 600 mg = 1 tab(s), Oral, q6h, PRN uterine cramping, 0 Refill(s) Start Date: 12/27/20 Status: Ordered levothyroxine sodium 0.05 mg oral tablet (1 source) l-Thyroxine Start: 12-25-2020 levothyroxine 50 mcg (0.05 mg) oral tablet Dose : 50 mcg = 1 tab(s), Oral, qDay, # 30 tab(s), 0 Refill(s) Start Date: 12/25/20 Status: Ordered Problems Problem Classification Problem Date Documented Da te Episodic/Chronic Immunizations and screening for infectious disease (1 source) Rubella non-immune 12-25-2020 Episodic Malposition; malpresentation (1 source) Transverse OR oblique presentation of fetus; Translations: [Maternal care for transverse and oblique lie, not applicable or unspecified] Onset: 12-25-2020 Episodic OB-related trauma to perineum and vulva (1 source) First degree perineal tear during delivery - delivered; Translations: [First degree perineal laceration during delivery] Onset: 12-26-2020 Episodic Other complications of (1 source) Complication of , childbirth and/or the puerperium; Translations: [Other specified diseases and conditions complicating ] Onset: 12-25-2020 Episodic Other complications of (1 source) Infectious disease in mother complicating , childbirth AND/OR puerperium; Translations: [Other maternal infectious and parasitic diseases complicating , unspecified trimester] Onset: 12-25-2020 Episodic Other complications of (2 sources) A/N care: poor obstetric history; Translations: [Supervision of with other poor reproductive or obstetric history, unspecified trimester] Onset: 12-25-2020 Episodic Other and delivery including normal (2 sources) Delivery normal; Translations: [Encounter for full-term uncomplicated delivery] Onset: 12-25-2020 Episodic Results Test Name Value Interpretation Reference Range Facil ity Vital Signs Date Time Vital Sign Value Performing Clinician Faci lity 12-27-2020 07:41-0400 Body temperature 97.16 [degF] BRISA RICKETTS MD [facility] 12-27-2020 07:41-0400 Diastolic blood pressure 76 mm[Hg] BRISA RICKETTS MD [facility] 12-27-2020 07:41-0400 Heart rate 73 /min BRISA RICKETTS MD [facility] 12-27-2020 07:41-0400 Mean blood pressure 95 mm[Hg] BRISA RICKETTS MD [facility] 12-27-2020 07:41-0400 Respiratory rate 18 /min BRISA RICKETTS MD [facility] 12-27-2020 07:41-0400 Systolic blood pressure 133 mm[Hg] BRISA RICKETTS MD [facility] 12-27-2020 01:40-0400 Body temperature 97.34 [degF] BRISA RICKETTS MD [facility] 12-27-2020 01:40-0400 Diastolic blood pressure 66 mm[Hg] BRISA RICKETTS MD [facility] 12-27-2020 01:40-0400 Heart rate 64 /min BRISA RICKETTS MD [facility] 12-27-2020 01:40-0400 Mean blood pressure 83 mm[Hg] BRISA RICKETTS MD [facility] 12-27-2020 01:40-0400 Respiratory rate 18 /min BRISA RICKETTS MD [facility] 12-27-2020 01:40-0400 Systolic blood pressure 118 mm[Hg] BRISA RICKETTS MD [facility] 12-26-2020 16:00-0400 Body temperature 97.7 [degF] BRISA RICKETTS MD [facility] 12-26-2020 16:00-0400 Diastolic blood pressure 68 mm[Hg] BRISA RICKETTS MD [facility] 12-26-2020 16:00-0400 Systolic blood pressure 114 mm[Hg] BRISA RICKETTS MD [facility] 12-26-2020 10:16-0400 Heart rate 72 /min BRISA RICKETTS MD [facility] 12-25-2020 15:39-0400 Body temperature 98.78 [degF] BRISA RICKETTS MD [facility] 12-25-2020 10:58-0400 Body temperature 98.6 [degF] BRISA RICKETTS MD [facility] 12-25-2020 09:20-0400 Body height 165 cm BRISA RICKETTS MD [facility] 12-25-2020 09:20-0400 Body weight 100 kg BRISA RICKETTS MD [facility] 12-25-2020 09:20-0400 Body weight 36.73 kg/m2 BRISA RICKETTS MD [facility] Encounters Encounter Date Encounter Type Care Provider Facility Start: 12-25-2020 End: 12-27-2020 Evaluation and management of inpatient BRISA RICKETTS MD [facility] Social History Date Type Detail Facility [facility] Sex Assigned At Female [facility] Discharge instructions 12-25-2020 Note Date & Type Note Facility 12-25-2020 Hospital Discharg e instructions Patient Education 12/25/2020 12:17:33 Vaginal Delivery, Care After Vaginal Delivery, Care After Refer to this sheet in the next few weeks. These instructions provide you with information about caring for yourself after vaginal delivery. Your health care provider may also give you more specific instructions. Your treatment has been planned according to current medical practices, but problems sometimes occur. Call your health care provider if you have any problems or questions. What can I expect after the procedure? After vaginal delivery, it is common to have: Some bleeding from your vagina. Soreness in your abdomen, your vagina, and the area of skin between your vaginal opening and your anus (perineum). Pelvic cramps. Fatigue. Follow these instructions at home: Medicines Take [id number] and prescription medicines only as told by your health care provider. If you were prescribed an antibiotic medicine, take it as told by your health care provider. Do not stop taking the antibiotic until it is finished. Driving Do not drive or operate heavy machinery while taking prescription pain medicine. Do not drive for 24 hours if you received a sedative. Lifestyle Do not drink alcohol. This is especially important if you are or taking medicine to relieve pain. Do not use tobacco products, including cigarettes, chewing tobacco, or e-cigarettes. If you need help quitting, ask your health care provider. Eating and drinking Drink at least 8 eight-ounce glasses of water every day unless you are told not to by your health care provider. If you choose to breastfeed your baby, you may need to drink more water than this. Eat high-fiber foods every day. These foods may help prevent or relieve constipation. High-fiber foods include: ?Whole grain cereals and breads. ?Brown rice. ?Beans. ?Fresh fruits and vegetables. Activity Return to your normal activities as told by your health care provider. Ask your health care provider what activities are safe for you. Rest as much as possible. Try to rest or take a nap when your baby is sleeping. Do not lift anything that is heavier than your baby or 10 lb (4.5 kg) until your health care provider says that it is safe. Talk with your health care provider about when you can engage in sexual activity. This may depend on your: ?Risk of infection. ?Rate of healing. ?Comfort and desire to engage in sexual activity. Vaginal Care If you have an episiotomy or a vaginal tear, check the area every day for signs of infection. Check for: ?More redness, swelling, or pain. ?More fluid or blood. ?Warmth. ?Pus or a bad smell. Do not use tampons or douches until your health care provider says this is safe. Watch for any blood clots that may pass from your vagina. These may look like clumps of dark red, brown, or black discharge. General instructions Keep your perineum clean and dry as told by your health care provider. Wear loose, comfortable clothing. Wipe from front to back when you use the toilet. Ask your health care provider if you can shower or take a bath. If you had an episiotomy or a perineal tear during labor and delivery, your health care provider may tell you not to take baths for a certain length of time. Wear a bra that supports your breasts and fits you well. If possible, have someone help you with household activities and help care for your baby for at least a few days after you leave the hospital. Keep all follow-up visits for you and your baby as told by your health care provider. This is important. Contact a health care provider if: You have: ?Vaginal discharge that has a bad smell. ?Difficulty urinating. ?Pain when urinating. ?A sudden increase or decrease in the frequency of your bowel movements. ?More redness, swelling, or pain around your episiotomy or vaginal tear. ?More fluid or blood coming from your episiotomy or vaginal tear. ?Pus or a bad smell coming from your episiotomy or vaginal tear. ?A fever. ?A rash. ?Little or no interest in activities you used to enjoy. ?Questions about caring for yourself or your baby. Your episiotomy or vaginal tear feels warm to the touch. Your episiotomy or vaginal tear is or does not appear to be healing. Your breasts are painful, hard, or turn red. You feel unusually sad or worried. You feel nauseous or you vomit. You pass large blood clots from your vagina. If you pass a blood clot from your vagina, save it to show to your health care provider. Do not flush blood clots down the toilet without having your health care provider look at them. You urinate more than usual. You are dizzy or light-headed. You have not breastfed at all and you have not had a menstrual period for 12 weeks after delivery. You have stopped and you have not had a menstrual period for 12 weeks after you stopped . Get help right away if: You have: ?Pain that does not go away or does not get better with medicine. ?Chest pain. ?Difficulty breathing. ?Blurred vision or spots in your vision. ?Thoughts about hurting yourself or your baby. You develop pain in your abdomen or in one of your legs. You develop a severe headache. You faint. You bleed from your vagina so much that you fill two sanitary pads in one hour. This information is not intended to replace advice given to you by your health care provider. Make sure you discuss any questions you have with your health care provider. Document Released: 02/24/2001 Document Revised: 08/10/2016 Document Reviewed: 03/13/2016 [employer] Interactive Patient Education 2019 [place]. Follow Up Care 12/25/2020 09:10:38 With:DRU LEUNG Address: [id number] [place] [address]- Home (1) When:Within 2 Week(s) With:LATONYA SUH Address: [address] [place] [address] [address] [facility] [phone] Business (1) When: Unknown [facility] Evaluation + Plan note 12-25-2020 Note Date & Type Note Facility Orders: carboprost, Start: 12/25/20 9:28:00 EDT, Dose = 250 mcg, = 1 mL, Intramuscular, Once, PRN, Other (see order comments) citric acid-sodium citrate, Start: 12/25/20 9:28:00 EDT, Dose = 30 mL, Soln, Oral, AsDirected, PRN, Gastric Upset, 0 Lactated Ringers Infusion, Start: 12/25/20 9:28:00 EDT, Dose = 500 mL, Soln, IV Bolus, AsDirected, PRN, Other (see order comments), Rate: 999 mL/hr, hour(s) Lactated Ringers Infusion 1,000 mL, Start: 12/25/20 9:28:00 EDT, Rate: 125 mL/hr lidocaine, Start: 12/25/20 9:28:00 EDT, Dose = 20 mg, = 2 mL, Perineum, AsDirected, PRN, to perineal sutures, 1 dose(s), Stop: Limited # of times methylergonovine, Start: 12/25/20 9:28:00 EDT, Dose = 0.2 mg, = 1 mL, Intramuscular, Once, PRN, Other (see order comments) miSOPROStol, Start: 12/25/20 9:28:00 EDT, Dose = 1,000 mcg, = 5 tab(s), Rectal, Once, PRN, Other (see order comments), 0 ondansetron, Start: 12/25/20 9:28:00 EDT, Dose = 4 mg, = 2 mL, IV Push, q4h, PRN, Nausea oxytocin, Start: 12/25/20 9:28:00 EDT, Dose = 20 unit(s), = 2 mL, Intramuscular, Once, PRN, Other (see order comments), 0 oxytocin 20 unit(s) + Lactated Ringers Infusion 1,000 mL, Start: 12/25/20 9:28:00 EDT, Rate: 999 mL/hr terbutaline, Start: 12/25/20 9:28:00 EDT, Dose = 0.25 mg, = 0.25 mL, Subcutaneous, AsDirected, PRN, Other (see order comments) terbutaline, Start: 12/25/20 9:45:00 EDT, Dose = 0.25 mg, = 0.25 mL, Subcutaneous, Once, Stop: 12/25/20 9:45:00 EDT .Auto Differential .Neutro Absolute Admit to Inpatient Ambulate Code Status Complete Blood Count Consult to Anesthesia Diet Order Epidural Anesthesia Monitoring Intake and Output IV Catheter Insertion/Care Oxygen Administration (LDRP) Prn Adapter Straight Cath Type and Screen (AO) Urinary Catheter Insertion/Care Vital Signs malpresentation discussed R/B/A to ECV ECV if successful, anticipate if unsuccessful, to OR for PCS [facility] Hospital course Narrative Note Date & Type Note Facility Hospital course Narrative No data available for this section [facility] Summary Purpose Family History No Family History Records Found Advance Directives No Advanced Directives Records Found Additional Source Comments INFORMATION SOURCE (unrecogn ized section and content) FOR RECORDS PERTAINING TO PATIENTS WHO ARE OR HAVE BEEN ENROLLED IN A CHEMICAL DEPENDENCY/SUBSTANCEABUSE PROGRAM, SOME INFORMATION MAY BE OMITTED. This clinical summary was aggregated from multiple sources. Caution should be exercised in using it in the provision of clinical care. This summary normalizes information from multiple sources, and as a consequence, information in this document may materially change the coding, format and clinical context of patient data. In addition, data may be omitted in some cases. CLINICAL DECISIONS SHOULD BE BASED ON THE PRIMARY CLINICAL RECORDS. [facility]. provides no warranty or guarantee of the accuracy or completeness of information in this document.
[2023-03-09 11:35] LABS: Absolute Lymphocyte Count 1.83 X10^3/uL (0.83-4.51); Absolute Neutrophil Count 7.7 X10^3/uL (2.0-7.7); Basophil# 0.03 X10^3/uL; Basophil% 0.3 % (0-1); Eosinophil# 0.31 X10^3/uL; Eosinophils% 2.9 % (0-5); Hematocrit 35.4 % (37-47); Hemoglobin 12.1 g/dL (12.0-15.0); Lymphocyte # 1.83 X10^3/ul (0.83-4.51); Lymphocyte % 16.9 % (19-41); Mean Corp Hgb Conc 34.2 g/dL (32-36); Mean Corpuscular Hgb 31.3 pg (27.0-32.0); Mean Corpuscular Volume 91.7 fL (81-99); Mean Platelet Vol. 11.8 fl (6.2-12.0); Monocyte# 0.83 X10^3/uL; Monocyte% 7.7 % (0-10); NRBC Flagged by Analyzer 0 % (0-5); Neutrophil # 7.74 X10^3/uL (2.7-7.7); Neutrophil % 71.6 % (47-70); Platelet Count 233 K/mm3 (150-450); RBC Distribution Width CV 12.8 % (11.6-14.6); RBC Distribution Width SD 42.7 fl (35.1-43.9); Red Blood Count 3.86 M/mm3 (4.2-5.4); White Blood Count 10.8 K/mm3 (4.4-11.0)
[2023-03-09 11:47] LABS: Creatinine, Urine (random) < 13.00 mg/dL (NO RANGE EST.); Protein, Urine (Random) < 6.0 mg/dL (<11.9)
[2023-03-09 11:48] LABS: AST(SGOT) 19 U/L (15-37); Alanine Aminotransfer ALT/SGPT 22 U/L (13-56); EST Glomerular Filtration Rate 150 mL/min (>60); Est Glom Filt Rate - Afr Amer 181 mL/min (>60); Estimated Creatinine Clearance 138.19 ml/min
[2023-03-09 12:17] LABS: Syphilis Antibodies Non-reactive
[2023-03-09 12:28] LABS: HIV - WCH Non-Reactive (Nonreactive)
[2023-03-09 12:42] LABS: Hepatitis C Antibody Non-Reactive (Nonreactive)
--- NOTE | 2023-03-09 13:05 | HP.PCM.OB_ITS ---
HPI - General General Date of Admission: 03/09/23 Date of Service: 03/09/23 Chief Complaint: elevated blood pressures HPI Narrative LUIS ANTONIO LOMBARDO, is a 33 F who presents with elevated blood pressures at home. Care through the [facility]. Yesterday she had a mild range blood pressure in the office. She was checking her blood pressures at home today and she had diastolics in the 90-100's range so she [facility] who requested that the pt present to [facility] for further evaluation and likely delivery. She denies PALACIOS, vision changes, upper abd pain, vomiting. Some nausea this morning. No ctx, vb, lof. Good FM. [facility] Medical History (Updated 03/09/23 @ 13:[address] Millie Jenkins, ) Pre-eclampsia Thyroid disorder Home Medications calcium carbonate 600 mg calcium (1,500 mg) tablet 600 mg PO .QD supplement 11/15/18 [History Last Taken 03/08/23] ferrous sulfate 325 mg (65 mg iron) tablet 325 mg PO .QD 11/15/18 [History Last Taken 03/08/23] folic acid 0.8 mg capsule 0.8 mg PO .QD 11/15/18 [History Last Taken 03/08/23] vits no.130-ferrous fum 27 mg iron-folic acid 800 mcg tablet 1 tab PO .QD supplement 11/15/18 [History Last Taken 03/08/23] blood pressure test kit-medium ##1 11/17/18 [Rx Last Taken Unknown] levothyroxine 50 mcg tablet (Synthroid) 50 mcg PO DAILY Hypothyroid 03/09/23 [History Last Taken 03/09/23] Allergy/AdvReac Type Severity Reaction Status Date / Time No Known Allergies Allergy Verified 03/09/23 11:33 Social History (Updated 11/22/18 @ 13:26 by Barbara Ordoñez) Smoking Status: Never smoker alcohol intake: never substance use type: does not use caffeine: Yes what type of physical activity do you participate in: none History 2 Elective abortions Hx Para 1 Spontaneous abortions Hx # Term Pregnancies Ectopic pregnancies Hx # Pregnancies Multiple births # of living children Past Pregnancies Del. Date Name GA/Weeks Outcome Route Bth Weight Infant Gen Labor Lgth Anesthesia Del Locatn Provider FOB Unknown at 4 days old Unknown demise 42w Addt'l History: Reports severe pre eclampsia with second and a placental abruption with subsequent demise. Denies other or delivery complications. Prior vaginal deliveries. Had a ECV with last for unstable lie. NST FHR Rate Baby A Baseline: 150 Variability:: Moderate Accelerations:: 15 x 15 Decelerations:: None NST Reactive:: Yes FHR Category:: Category I Uterine Activity:: no ctx's Vital Signs Vital Signs Vital Signs: 03/09/23 10:45 03/09/23 10:45 03/09/23 10:53 Temperature Temperature Source Pulse Rate 101 H 90 Blood Pressure 129/95 H BP Systolic 129 BP Diastolic 95 Pulse Ox 03/09/23 10:53 03/09/23 10:59 03/09/23 10:59 Temperature Temperature Source Pulse Rate 85 Blood Pressure 136/91 H BP Systolic 136 BP Diastolic 91 Pulse Ox 96 03/09/23 10:59 03/09/23 10:59 03/09/23 10:59 Temperature 99.4 F H Temperature Source Temporal Pulse Rate Blood Pressure BP Systolic BP Diastolic Pulse Ox 96 03/09/23 11:29 03/09/23 11:29 03/09/23 11:44 Temperature Temperature Source Pulse Rate 83 Blood Pressure 135/79 H 141/84 H BP Systolic 135 141 BP Diastolic 79 84 Pulse Ox 03/09/23 11:44 03/09/23 12:15 03/09/23 12:15 Temperature Temperature Source Pulse Rate 85 81 Blood Pressure 136/82 H BP Systolic 136 BP Diastolic 82 Pulse Ox 03/09/23 12:29 03/09/23 12:29 03/09/23 12:44 Temperature Temperature Source Pulse Rate 86 Blood Pressure 137/85 H 139/87 H BP Systolic 137 139 BP Diastolic 85 87 Pulse Ox 03/09/23 12:44 03/09/23 12:59 03/09/23 12:59 Temperature Temperature Source Pulse Rate 76 82 Blood Pressure 137/85 H BP Systolic 137 BP Diastolic 85 Pulse Ox Weight Weight: 233 lb 2 oz Body Mass Index (BMI) 40.0 Labs Labs Labs: Blood Type A POSITIVE Antibody Screen NEGATIVE Hct 35.4 % (37-47) L Hgb 12.1 g/dL (12.0-15.0) Obstetrics Ultrasound Syphilis Total Ab Non-reactive Rubella IgG Antibody 0.8 IU/mL Hep Bs Antigen Non-Reactive (Nonreactive) Hepatitis C Antibody Non-Reactive (Nonreactive) HIV 1&2 Antibody Non-Reactive (Nonreactive) Group B Strep DNA POSITIVE (Negative) H Rhogam given: No Assessment & Plan (1) 38 weeks gestation of : PLAN: Transfer from [facility] for elevated blood pressures. Pt had additional mild range BP on admission meeting criteria for gHTN. Check pre e labs. No symptoms of pre e at this time. Discussed with pt recommend delivery given gHTN and 38 wk gestation. Bedside TAUS showing fetus in transverse position and anterior low lying placenta. Will have formal ultrasound completed to assess placental location. Discussed r/b/a ECV vs primary section if there is no previa or low lying placenta. Will wait for ultrasound report. (2) Limited care: (3) Gestational hypertension: (4) History of pre-eclampsia: (5) Consanguinity: COMMENT: and are second cousins (6) Family history of SIDS (sudden infant syndrome):
--- NOTE | 2023-03-09 13:35 | PCM.PN.BLA ---
Progress Note Pt offers no complaints at this time. Assessment & Plan Assessment/Plan (1) 38 weeks gestation of : PLAN: Formal TVUS shows no evidence of previa or low lying placenta. head now in pelvis but not engaged. Cvx closed so unable to perform AROM. Start cytotec. Discussed variable lie. (2) Gestational hypertension:
[2023-03-09] MEDS: miSOPROStol 25 MCG TABLET PO ×2 (13:54→18:11)
[2023-03-09 14:19] LABS: Bedside Glucose 102 mg/dL (74-106)
--- NOTE | 2023-03-09 21:25 | PCM.PN.BLA ---
Progress Note At bedside to check on pt. S/p 2 doses of cytotec. She is comfortable and offers no complaints. Assessment & Plan Assessment/Plan (1) 38 weeks gestation of : PLAN: TAUS performed and head in maternal left pelvis and in oblique presentation. With gentle pressure x 1 the head was easily directed into the pelvis after discussion of this with the patient including r/b/a. Cephalic presentation was then confirmed on bedside TAUS. Discussed unstable lie with patient and risk for cord prolapse with need for emergent delivery and , and risk of section. On admission, offered patient a primary section which she declined. Again discussed option for a primary section given risks with unstable lie, and patient declines. The patient desires to try for a vaginal delivery and she understands the risks associated with unstable lie. Will start Pitocin per protocol so hopefully fetus engages in the pelvis. EFW estimated to be < 4500 g based on Richard's maneuver. Pelvis feels adequate. Cvx fingertip/thick/high and unable to place intracervical da silva at this time. Discussed with patient to have a low threshold to let us know if she is uncomfortable with ctx's for cervical exam given unstable lie. (2) Gestational hypertension:
[2023-03-09] MEDS: Oxytocin 15 Units/NS 250ml 15 UNITS/250 ML IV.SOLN 2 UNITS IV (22:36)
[2023-03-09] MEDS: CHLORHEXIDINE GLUC 2% CLOTH 1 EACH TOWELETTE TOPICAL (22:37)
[2023-03-10] VITALS (26 sets, daily range): BP systolic 114–148; BP diastolic 59–94; PULSE 73–107; RESP 16; TEMP 36–37.1; O2SAT 90–98
[2023-03-10] MEDS: Lactated Ringers 1,000 ML 50 ML IV (03:16)
[2023-03-10] MEDS: LACTATED RINGERS 500 ML 999 ML IV (08:26)
--- NOTE | 2023-03-10 09:55 | PCM.PN.BLA ---
Progress Note At bedside to check on pt. Getting uncomfortable with ctx's. Assessment & Plan Assessment/Plan (1) 38 weeks gestation of : PLAN: Cvx /-2, head palpated. AROM performed for a large amount of fluid with assistance from Dr. Garrett who applied gentle abdominal pressure to stabilize the fetus in the maternal pelvis and prevent rotation. After AROM head engaged in pelvis. IUPC and FSE placed. Amniotic fluid was clear. Continue pitocin. (2) Gestational hypertension: (3) Limited care: (4) History of pre-eclampsia:
[2023-03-10] MEDS: Lidocaine 1% (20 ml mdv) 20 ML Vial INFILT (11:10)
--- NOTE | 2023-03-10 11:21 | PCM.OPRPT ---
Problems Associated Problem List Diagnoses (1) Gestational hypertension: (2) Limited care: (3) 38 weeks gestation of : Report of Operation Date of Procedure: 03/10/23 Pre-Operative Diagnosis: 38 week gestation, limited care, gHTN Post-Operative Diagnosis: As above Surgery/Procedure Performed:: Repair of 1st degree vaginal laceration Description of Surgical Findings:: VFI in cephalic presentation. Normal appearing placenta and 3VC. Apgars 8, 9. Surgeon: Millie Jenkins paste mixer liquid: None Type of Anesthesia: Epidural Special Medications: None Specimen's removed: Placenta Drains: None Estimated Blood Loss (mL): 200 Fluids Replaced: N/A Description of Procedure: The patient was complete and pushed for one contraction. After one contraction, the head of the infant delivered followed by the shoulders and the body without any force, traction, or delay. The cord was clamped and cut after a 60 sec delay by the father of the baby. The placenta was delivered with gentle fundal massage and noted to be normal-appearing and intact with a three-vessel cord. Two first-degree vaginal lacerations were noted to be bleeding and therefore repaired in usual fashion with 3-0 Vicryl after injection of 1% lidocaine. Fundus firm and bleeding hemostatic. A vaginal sweep was performed. Sharp and sponge counts were correct. Grafts/Implants Used: None Complications None Admit VTE Documentation VTE Present on Admission: No
[2023-03-10] MEDS: Oxytocin 15 Units/NS 250ml 15 UNITS/250 ML IV.SOLN 83 UNITS IV (11:30)
[2023-03-10] MEDS: Ibuprofen 600 MG Tablet PO ×2 (12:13→23:35)
[2023-03-11] VITALS (8 sets, daily range): BP systolic 125–129; BP diastolic 71–78; PULSE 81–97; RESP 15–16; TEMP 36.1–36.6; O2SAT 94–95
[2023-03-11] MEDS: Levothyroxine 50 MCG Tablet PO (05:45)
--- NOTE | 2023-03-11 12:31 | PN.OBGYN_ITS ---
Subjective Subjective Doing well per patient and nursing staff. Ambulating and taking PO without difficulty. Voiding and passing flatus. Pain controlled. , services for assistance. Denies headache, visual changes, chest pain, shortness of breath, leg pain or increased bleeding. Lochia normal. Objective Data Objective Data Skin pink, warm, dry, lungs clear to auscultation, respirations easy, regular. No cough. Apical pulse strong regular with extra heart sounds. Abdomen soft, active bowel sounds, Fundus firm at U -1, lochia light without clots. Vital Signs: Vital Signs Temp Pulse Resp BP Pulse Ox O2 Del Method 97.9 F 88 16 129/78 H 97 Room Air 03/11/23 08:24 03/11/23 08:24 03/11/23 08:24 03/11/23 08:24 03/10/23 23:30 03/11/23 08:24 Oxygen Delivery Method Room Air Weight: 233 lb 2 oz Body Mass Index (BMI) 40.0 Intake & Output: Intake and Output for Last 24 Hours 03/09/23 03/10/23 03/11/23 23:59 23:59 23:59 Intake Total 502.03 / 502.03 2573.43 / 2573.43 Output Total 200 / 200 Balance 502.03 / 502.03 2373.43 / 2373.43 Lab / Micro Data 03/09/23 10:45 03/09/23 10:45 Micro: Microbiology 03/09/23 11:15 Interface Orders Chlamydia trachomatis (PCR) - Final 03/09/23 11:15 Interface Orders Neisseria gonorrhoeae (PCR) - Final ROS Constitutional Constitutional: Reports systems reviewed and no addt'l complaints, except as documented; Denies headache(s) Eyes Eyes: Denies acute decrease in peripheral vision, blurry vision or change in vision ENT HEENT: Reports systems reviewed and no addt'l complaints, except as documented Cardiovascular Cardiovascular: Denies chest pain or dizziness Respiratory/Chest Respiratory/Chest: Denies cough, dyspnea, dyspnea on exertion, shortness of breath at rest or shortness of breath with exertion Gastrointestinal Gastrointestinal: Denies abdominal pain, diarrhea, nausea or vomiting Genitourinary Genitourinary: Denies abdominal discomfort Musculoskeletal Musculoskeletal: Denies limited range of motion Integumentary Integumentary: Reports systems reviewed and no addt'l complaints, except as documented Neurologic Neurologic: Reports systems reviewed and no addt'l complaints, except as documented Psychiatric Psychiatric: Reports systems reviewed and no addt'l complaints, except as docu mented Endocrine Endocrinology: Reports systems reviewed and no addt'l complaints, except as documented Hematologic/Lymphatic Hematologic/Lymphatic: Reports systems reviewed and no addt'l complaints, except as documented Allergic/Immunologic Allergic/Immunologic: Reports systems reviewed and no addt'l complaints, except as documented Assessment & Plan (1) History of pre-eclampsia: (2) Gestational hypertension: (3) (normal spontaneous vaginal delivery): (4) Obstetric vaginal laceration with first degree perineal laceration: PLAN: Plan PPD #1 VSS Planning DC to home tomorrow
--- NOTE | 2023-03-11 20:58 | NURSING ---
This RN called to room around 1999 to look at clot patient had passed. Decent size clot sitting in back of toilet. This RN called in ERhoads advertising inserter to assess clot as well. Will monitor further bleeding closely. Patients fundus firm 2 below umbilicus.
[2023-03-12 01:51] VITALS: BP 131/67; PULSE 88; O2SAT 97
[2023-03-12 01:55] VITALS: BP 131/67; PULSE 84; RESP 15; TEMP 36.1; O2SAT 97
[2023-03-12] MEDS: Levothyroxine 50 MCG Tablet PO (06:11)
--- NOTE | 2023-03-12 06:43 | PN.OBGYN_ITS ---
Subjective Subjective Pt is doing well. Ambulating and voiding without difficulty. Tolerating a diet without nausea or vomiting. Lochia is normal. She is breast-feeding without complaints. She denies chest pain, shortness of breath, leg pain. She desires discharge today. Objective Data Objective Data Vital Signs: Vital Signs Temp Pulse Resp BP Pulse Ox O2 Del Method 97.0 F L 84 15 131/67 H 97 Room Air 03/12/23 01:55 03/12/23 01:55 03/12/23 01:55 03/12/23 01:55 03/12/23 01:55 03/12/23 01:55 Oxygen Delivery Method Room Air Weight: 233 lb 2 oz Body Mass Index (BMI) 40.0 Intake & Output: Intake and Output for Last 24 Hours 03/10/23 03/11/23 03/12/23 23:59 23:59 23:59 Intake Total 2573.43 / 2573.43 Output Total 200 / 200 Balance 2373.43 / 2373.43 Lab / Micro Data 03/09/23 10:45 03/09/23 10:45 Micro: Microbiology 03/09/23 11:15 Interface Orders Chlamydia trachomatis (PCR) - Final 03/09/23 11:15 Interface Orders Neisseria gonorrhoeae (PCR) - Final Physical Exam Const alert and no apparent distress Constitutional Narrative: Nursing General Appearance: comfortable Assessment & Plan (1) (normal spontaneous vaginal delivery): PLAN: The patient is day 2 from a vaginal delivery. Doing well and meeting milestones for discharge. Reviewed discharge instructions and recommend following up in our office for follow-up. The patient reports she plans on following up with Dr. Burns at [facility]. (2) Obstetric vaginal laceration with first degree perineal laceration:
--- NOTE | 2023-03-12 06:46 | DCINST_ITS ---
Discharge Instructions Diet Discharge Diet: No restrictions Activity Discharge Activity: May Shower May resume sexual activity in: 6 weeks Ice area for (Minutes): 15 Weight Bearing Status: Weight bearing as tolerated Lifting Restrictions: nothing heavier than baby Dressing / Incision Call your doctor if you observe: Fever of 101 or Higher, Coldness, Increased Pain, Numbness or Tingling, Change in Color, Inability to urinate, Inability to have a bowel movement, Using more than 1 pad per hour, Shortness of breath, Dizziness, Fainting spells, Swelling in the ankles, Chest pain, Increased palpitations (irregular heartbeat), Calf discomfort and Uncontrolled pain Follow Up Care Please Follow Up With: Millie Jenkins DO When: 1-2 weeks for blood pressure check 6 weeks for visit If you plan to follow up with your provider that took care of you during the , that is okay as long as you have follow up in 1-2 weeks to have your blood pressure checked. Test Results: Test results from this visit will be discussed in further detail at your follow- up appointment, if applicable. Discharge Plan Admission Admit Date/Time: 03/09/23 10:25 Primary Reason for Your Visit: delivery Attending Provider: Millie Jenkins Primary Care Provider: Gonzalo Burns Instructions Patient Instructions: After a Vaginal Discharge Orders/Prescriptions Prescriptions: Continued vit no.[id number] 1 EACH tablet 1 tab PO .QD levothyroxine [Synthroid] 50 mcg tablet 50 mcg PO DAILY Patient Comments: taking 2 tabs // and 2.5 tabs on /// Rx Instructions: orally daily; Discontinued calcium carbonate 600 MG tablet 600 mg PO .QD ferrous sulfate 325 MG tablet 325 mg PO .QD folic acid 0.8 MG capsule 0.8 mg PO .QD aspirin 81 mg capsule 81 mg PO DAILY No Action (DME) blood pressure test kit-medium 1 EACH kit 1 ea MC DAILY Qty: 1 0RF Rx Instructions: Call if top number >160 or bottom number >110 or you have a persistent headache or change in vision Referrals / Follow Up: Gonzalo Burns DO [Primary Care Provider] - Disposition Disposition (needs filled in before D/C Order can be placed): Home, Self Care
[2023-03-12 08:57] VITALS: BP 123/86; PULSE 94
[2023-03-12 09:00] VITALS: BP 123/86; PULSE 94; RESP 16; TEMP 36.6
== END 2023-03-12 10:15 | disposition home or self-care (01) | DRG 807 ==
PROVIDERS: Admitting Provider Obstetrics & Gynecology; PCP Family Medicine; Visit Provider Obstetrics & Gynecology
DX: O13.4 Gestational [pregnancy-induced] hypertension without significant proteinuria, complicating childbirth (principal); Z37.0 Single live birth; O32.2XX0 Maternal care for transverse and oblique lie, not applicable or unspecified; O32.0XX0 Maternal care for unstable lie, not applicable or unspecified; O70.0 First degree perineal laceration during delivery; Z3A.38 38 weeks gestation of pregnancy; Z87.59 Personal history of other complications of pregnancy, childbirth and the puerperium; Z84.3 Family history of consanguinity; Z84.82 Family history of sudden infant death syndrome
CPT/HCPCS: 59025; 59050; 76815; 82565; 82570; 82962; 84156; 84450; 84460; 84550; 85025; 86703; 86780; 86803; 86850; 86900; 86901; 87491; 87591; 99221; J7120; G0378